=== PATIENT | male | born 2000 ===

== ENCOUNTER 2018-09-20 13:54 | Emergency (ER) | payer MEDICAID ==
[2018-09-20 14:20] VITALS: BP 118/68; PULSE 89; RESP 18; TEMP 97.4; O2SAT 95
--- NOTE | 2018-09-20 14:42 | C.PDOC ---
History Of Present Illness 18 year old male presents to the ED for evaluation of an occasional, intermittent "pinching" sensation to his umbilical area that has been ongoing for several months. 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 Patient also reports experiencing dysuria for two days. He denies fever, chills, nausea, vomiting, penile discharge, or concern for STD. Time Seen by Provider: 09/20/18 14:21 Chief Complaint (Nursing): Abdominal Pain History Per: Patient History/Exam Limitations: no limitations Onset/Duration Of Symptoms: Days (dysuria, two ), Intermittent Episodes (several months ) Current Symptoms Are (Timing): Still Present Quality Of Discomfort: Other (pinching ) Associated Symptoms: Urinary Symptoms (dysuria ). denies: Fever, Chills, Nausea, Vomiting Exacerbating Factors: Movement, Other (lifting heavy objects ) Additional History Per: Patient Past Medical History Reviewed: Historical Data, Nursing Documentation, Vital Signs Vital Signs: Last Vital Signs Temp 97.4 F L 09/20/18 14:16 Pulse 89 09/20/18 14:16 Resp 18 09/20/18 14:16 BP 118/68 09/20/18 14:16 Pulse Ox 95 09/20/18 14:16 - Medical History PMH: No Chronic Diseases Surgical History: No Surg Hx Family History: States: Unknown Family Hx - Social History Hx Tobacco Use: No Hx Alcohol Use: No Hx Substance Use: No - Immunization History Hx Tetanus Toxoid Vaccination: No Hx Influenza Vaccination: No Hx Pneumococcal Vaccination: No Review Of Systems Constitutional: Negative for: Fever, Chills Gastrointestinal: Positive for: Other (pinching sensation to umbilical area ). Negative for: Nausea, Vomiting Genitourinary: Positive for: Dysuria. Negative for: Penile Discharge Physical Exam - Physical Exam Appears: Non-toxic, No Acute Distress Skin: Normal Color, Warm, Dry Head: Atraumatic, Normacephalic Eye(s): bilateral: Normal Inspection Oral Mucosa: Moist Neck: Supple Chest: Symmetrical, No Deformity, No Tenderness Cardiovascular: Rhythm Regular, No Murmur Respiratory: Normal Breath Sounds, No Rales, No Rhonchi, No Wheezing Gastrointestinal/Abdominal: Soft, No Tenderness, No Guarding, No Rebound, No Other (Mitchell's sign or McBurney's point tenderness ) Back: No CVA Tenderness Extremity: Normal ROM, Capillary Refill (less than 2 seconds ) Neurological/Psych: Oriented x3, Normal Speech, Normal Cognition Gait: Steady ED Course And Treatment O2 Sat by Pulse Oximetry: 95 (on RA) Pulse Ox Interpretation: Normal Progress Note: Urinalysis ordered and reviewed. Results are within normal limits. On reassessment, patient is resting comfortably, showing no signs of distress and is stable for discharge. Patient is advised to follow up with his PMD within 1-2 days for further evaluation. Return to ED if sx worsen. Disposition Counseled Patient/Family Regarding: Studies Performed, Diagnosis, Need For Followup, Rx Given - Disposition Referrals: Tobin Bro MD [Medical Doctor] - Disposition: HOME/ ROUTINE Disposition Time: 15:40 Condition: STABLE Additional Instructions: FOLLOW UP WITH YOUR DOCTOR IN 1-2 DAYS USE MEDICATION NEEDED DRINK PLENTY OF FLUIDS RETURN TO ER IF SYMPTOMS WORSEN Prescriptions: Naproxen 375 mg PO BID PRN #20 tablet PRN Reason: pain Instructions: Muscle Spasms (DC) Forms: [employer] (Maori) Print Language: PASHTO - Clinical Impression Clinical Impression: Muscle spasm - Scribe Statement The provider has reviewed the documentation as recorded by the Scribe (Prema Ferraro) Provider Attestation: All medical record entries made by the Scribe were at my direction and personally dictated by me. I have reviewed the chart and agree that the record accurately reflects my personal performance of the history, physical exam, medical decision making, and the department course for this patient. I have also personally directed, reviewed, and agree with the discharge instructions and disposition.
[2018-09-20 15:31] LABS: URINE BILIRUBIN NEGATIVE (NEGATIVE); URINE BLOOD NEGATIVE (NEGATIVE); URINE CLARITY Clear (Clear); URINE COLOR Yellow (YELLOW); URINE GLUCOSE (UA) NORMAL (Normal); URINE HYALINE CAST 0-2 /lpf (0-2); URINE LEUKOCYTE ESTERASE NEG Leu/uL (Negative); URINE PROTEIN NEGATIVE (NEGATIVE); URINE UROBILINOGEN NORMAL mg/dL (0.2-1.0)
== END 2018-09-20 16:00 | disposition home or self-care (01) ==
LOC: C.ER 13:54
DX: M62.838 Other muscle spasm (principal)